=== PATIENT | female | born 1950 | race Two or more races ===

== ENCOUNTER 2020-05-28 07:26 | Outpatient (CLI) | payer OTHER | END 2020-05-28 07:40 | disposition home or self-care (01) | LOC: NUCLEAR 07:26 | PROVIDERS: ATTEND Internal Medicine Cardiovascular Disease | DX: I25.118 Atherosclerotic heart disease of native coronary artery with other forms of angina pectoris (principal); E11.9 Type 2 diabetes mellitus without complications | CPT/HCPCS: J1250; A9500; 93017; 78452 ==

== ENCOUNTER 2020-07-02 07:58 | Outpatient (CLI) | payer OTHER | END 2020-07-02 08:10 | disposition home or self-care (01) | LOC: NUCLEAR 07:58 | DX: C91.12 Chronic lymphocytic leukemia of B-cell type in relapse (principal) | CPT/HCPCS: 78816; A9552 ==

== ENCOUNTER 2021-01-29 08:43 | Outpatient (CLI) | payer OTHER | END 2021-01-29 08:51 | disposition home or self-care (01) | LOC: RX STUDY 08:43 | DX: R13.19 Other dysphagia (principal); K21.9 Gastro-esophageal reflux disease without esophagitis; Z68.41 Body mass index [BMI] 40.0-44.9, adult; E66.8 Other obesity ==

== ENCOUNTER → 2022-12-29 07:33 | Outpatient (CLI) | payer OTHER | END | disposition home or self-care (01) | LOC: NUCLEAR 07:33 | DX: C91.10 Chronic lymphocytic leukemia of B-cell type not having achieved remission (principal) | CPT/HCPCS: 78816; A9552 ==

== ENCOUNTER 2025-09-24 07:37 | Outpatient (CLI) | payer OTHER | END 2025-09-24 07:43 | disposition home or self-care (01) | LOC: NUCLEAR 07:37 | DX: C91.12 Chronic lymphocytic leukemia of B-cell type in relapse (principal) ==